=== PATIENT | male | born 1990 | race Caucasian/White ===

== ENCOUNTER 2021-01-12 16:07 | Emergency (ER) | payer SELFPAY ==
[2021-01-12] MEDS ORDERED: Lidocaine 1% 10 ML MDV INJECT ONE (16:31)
--- NOTE | 2021-01-12 16:35 | EDM.PDOC ---
ED HPI GENERAL MEDICAL PROBLEM - General Chief Complaint: Upper Extremity Injury/Pain Stated Complaint: FINGER INJURY Time Seen by Provider: 01/12/21 16:15 Source of Information: Reports: Patient, RN Notes Reviewed History Limitations: Reports: No Limitations - History of Present Illness INITIAL COMMENTS - FREE TEXT/NARRATIVE: Patient is a 30-year-old male who presents to the ER for the evaluation of a finger injury. Patient was at work at around 3 PM today, when he got his left index finger smashed at work. He went to the [facility], and they were able to clean the wound and wrap it but they did not have access to x-rays or did not definitively close the wound. He has full range of motion in his finger, and is denying any numbness or tingling distal to the injury. He has lacerated the nailbed, and has what appears to be an avulsion type injury to the proximal nail bed. There is a laceration that runs up the radial side of his finger, to the distal tip of his left index finger. Patient denies any other sick-like symptoms, fever/chills, cough/shortness of breath, nausea/vomiting/diarrhea. Patient is up-to-date on his tetanus booster. - Related Data Allergies Allergy/AdvReac Type Severity Reaction Status Date / Time No Known Allergies Allergy Verified 01/12/21 16:17 Home Meds: Home Meds cephALEXin [Cephalexin] 500 mg PO BID 7 Days #14 capsule 01/12/21 [Rx] Past Medical History - Past Surgical History HEENT Surgical History: Reports: Oral Surgery Social & Family History - Tobacco Use Tobacco Use Status *Q: Never Tobacco User - Recreational Drug Use Recreational Drug Use: No Review of Systems - Review of Systems Review Of Systems: Comprehensive ROS is negative, except as noted in HPI. ED EXAM, GENERAL - Physical Exam Exam: See Below Exam Limited By: No Limitations General Appearance: Alert, WD/WN, No Apparent Distress Respiratory/Chest: No Respiratory Distress, Lungs Clear, Normal Breath Sounds, No Accessory Muscle Use, Chest Non-Tender Cardiovascular: Normal Peripheral Pulses, Regular Rate, Rhythm, No Edema Peripheral Pulses: 2+: Radial (L), Radial (R) Extremities: Normal Range of Motion, Normal Capillary Refill Neurological: Alert, Oriented, Normal Cognition, No Motor/Sensory Deficits Psychiatric: Normal Affect, Normal Mood Skin Exam: Warm, Dry, Normal Color, No Rash, Wound/Incision (Roughly 3 cm lacer ation to the distal left posterior fingertip, the nailbed is lacerated, the laceration extends up the radial side of the patient's index finger, with it terminating at the very distal tip of the finger) ED TRAUMA EXTREMITY PROCEDURES - Laceration/Wound Repair Left Distal Digit - 2nd (Index) Lac/Wound Length In cm: 3 Appearance: Superficial, Irregular Distal NVT: Neuro & Vascular Intact, No Tendon Injury Anesthetic Type: Digital Local Anesthesia - Lidocaine (Xylocaine): 1% Plain Local Anesthetic Volume: 4cc Skin Prep: Chlorhexidine (Hibiciens), Saline Exploration/Debridement/Repair: Wound Explored, In a Bloodless Field, Explored to Base, No Foreign Material Found Closed With: Sutures Suture Size: 4-0 # of Sutures: 6 Suture Type: Prolene, Interrupted, Simple Sterile Dressing Applied: Nurse Tetanus Status Addressed: Yes Complications: No - Splinting Left 2nd Digit Splint Site: L index finger Pre-Procedure NV Status: Normal Post-Procedure NV Status: Normal Splint Material: Aluminum-Foam (cage type spling) Applied & Form Fitted By: Nurse Provider Post-Splint Application NV Check: NV Status Normal, Good Position Course - Vital Signs Last Recorded V/S: Last Vital Signs Temp 97.6 F 01/12/21 16:13 Pulse 86 01/12/21 16:13 Resp 20 01/12/21 16:13 BP 135/91 H 01/12/21 16:13 Pulse Ox 98 01/12/21 16:13 - Orders/Labs/Meds Meds: Medications Discontinued Medications Generic Name Dose Route Start Last Admin Trade Name Gregg PRN Reason Stop Dose Admin Lidocaine HCl 10 ml 01/12/21 16:31 Lidocaine 1% 10 Ml Mdv INJECT 01/12/21 16:32 ONETIME ONE - Re-Assessments/Exams Free Text/Narrative Re-Assessment/Exam: 01/12/21 16:34 Patient presents to the ER for evaluation of a finger injury, we will go ahead and get x-ray of the area for further evaluation. Patient has violated the nailbed, he will lose the nail 1 where the other. He would like sutures to be placed to try to anchor the nail back down. It should come back together nice once the swelling has decreased a little bit. 01/12/21 17:34 The patient's x-ray does demonstrate a distal tuft fracture of the left index finger. Once the finger has been sutured we will go ahead and place him in a aluminum/foam cage type splint to protect the fingertip. He will be placed on oral Keflex for ongoing management. Departure - Departure Time of Disposition: 17:35 Disposition: Home, Self-Care 01 Condition: Good Clinical Impression: Open fracture of finger of left hand Qualifiers: Encounter type: initial encounter Finger: index finger Phalanx: distal Fracture alignment: nondisplaced Qualified Code(s): S62.661B - Nondisplaced fracture of distal phalanx of left index finger, initial encounter for open fracture - Discharge Information *PRESCRIPTION DRUG MONITORING PROGRAM REVIEWED*: No *COPY OF PRESCRIPTION DRUG MONITORING REPORT IN PATIENT JULIANNA: No Prescriptions: cephALEXin [Cephalexin] 500 mg PO BID 7 Days #14 capsule Instructions: Finger Fracture, Adult, [id number] Referrals: PCP,None [Primary Care Provider] - Forms: ED Department Discharge Additional Instructions: You have been evaluated in the ED for your finger injury. Sutures will need to stay in for 10 to 14 days. You may return to the ED or any clinic for removal. An aluminum foam type splint was placed over the wound area to help protect this while it is healing. Your finger x-ray did demonstrate a tuft fracture of your distal index finger. You will need to be placed on antibiotics for this. It will be cephalexin 1 tablet two times a day for the next 7 days. This medication was electronically sent to the [place] [facility] located in the [facility] [place] [employer]. Please keep this area clean and dry, you may cleanse with regular soap and water. No vigorous scrubbing. Please try to avoid submerging the affected area in water for prolonged periods of time until the sutures are removed. Watch out for signs of infection like increased redness, swelling, pain at the laceration site, or if you should develop any fevers or chills. Please return to ED if your symptoms change or worsen. Sepsis Event Note (ED) - Focused Exam Vital Signs: Vital Signs Temp Pulse Resp BP Pulse Ox 01/12/21 16:13 97.6 F 86 20 135/91 H 98
--- NOTE | 2021-01-12 18:01 | CR ---
Left second finger: Four views of the second finger were obtained. Comparison: No prior finger or hand study is available. Slightly comminuted fracture with mild displacement is seen within the distal tuft of the left second finger. Soft tissue injury is noted. No additional bony abnormality is appreciated. Impression: 1. Fracture with soft tissue swelling as noted above. Diagnostic code #3
== END 2021-01-12 18:26 | disposition home or self-care (01) ==
LOC: JD.ED 16:07
DX: S62.661B Nondisplaced fracture of distal phalanx of left index finger, initial encounter for open fracture (principal); W23.0XXA Caught, crushed, jammed, or pinched between moving objects, initial encounter; Y99.0 Civilian activity done for income or pay
CPT/HCPCS: 11760; 12002; 73140-26-F1; 73140-F1; 99283-25

== ENCOUNTER 2023-05-03 05:00 | Emergency (ER) | payer OTHER ==
[2023-05-03] MEDS ORDERED: Ketorolac 15 MG/ML SDV IVPUSH ONE (05:42)
[2023-05-03] MEDS ORDERED: Ondansetron 4 MG Tab.DIS PO ONE (05:42)
[2023-05-03] MEDS ORDERED: Sodium Chloride 0.9% 1,000 ML IV ONE (05:45)
[2023-05-03 06:39] LABS: BASOPHILS PERCENT AUTO 0.3 % (0.0-1.0); EOSINOPHILS PERCENT AUTO 0.1 % (0.0-6.0); HEMATOCRIT 47.5 % (42.0-52.0); IMMATURE GRAN ABSOLUTE AUTO 0.05 K/mm3 (0.00-0.05); IMMATURE GRAN PERCENT AUTO 0.4 % (0.0-0.4); LYMPHOCYTES PERCENT AUTO 8.1 % (24.0-44.0); MEAN CORPUSCULAR HEMOGLOBIN 26.5 pg (28.0-32.0); MEAN CORPUSCULAR HGB CONC 31.6 g/dl (32.0-36.0); MEAN CORPUSCULAR VOLUME 83.8 fl (83.0-99.0); MEAN PLATELET VOLUME 11.7 fl (9.4-12.4); MONOCYTES ABSOLUTE AUTO 0.8 K/mm3 (0.0-0.8); MONOCYTES PERCENT AUTO 6.2 % (0.0-8.0); NEUTROPHILS ABSOLUTE AUTO 10.5 K/mm3 (1.8-7.7); NEUTROPHILS PERCENT AUTO 84.9 % (41.0-71.0); PLATELET COUNT,PLT 201 K/mm3 (150-400); RED BLOOD CELL COUNT 5.67 M/mm3 (4.52-5.90); WHITE BLOOD CELL COUNT,WBC 12.34 K/mm3 (3.9-11.3)
[2023-05-03 06:52] LABS: ALBUMIN 3.8 g/dl (3.4-5.0); ANION GAP 14.9 (5-15); BILIRUBIN TOTAL 1.1 mg/dL (0.2-1.0); BUN/CREATININE RATIO 13.1 (14-18); CALCIUM 9.4 mg/dL (8.5-10.1); CREATININE 1.3 mg/dL (0.7-1.3); EST CRCL DRUG DOSING (CG) 81.58 mL/min; POTASSIUM,K 3.9 mEq/L (3.5-5.1); PROTEIN TOTAL,TP 7.7 g/dl (6.4-8.2)
[2023-05-03 07:09] LABS: APPEARANCE,URINE CLEAR (Clear); BILIRUBIN,URINE NEGATIVE (Negative); COLOR,URINE DARK YELLOW (Yellow); GLUCOSE,URINE NEGATIVE (Negative); KETONES,URINE TRACE (Negative); LEUKOCYTE ESTERASE,URINE NEGATIVE (Negative); NITRITE,URINE NEGATIVE (Negative); OCCULT BLOOD,URINE TRACE-LYSED (Negative); PROTEIN,URINE NEGATIVE (Negative); UROBILINOGEN,URINE 0.2 (0.2-1.0)
[2023-05-03 07:28] LABS: BACTERIA,URINE FEW /hpf (FEW); CALCIUM OXALATE CRYSTALS,URINE FEW; EPITHELIAL CELLS,URINE 0-5 /hpf (0-5); MUCUS,URINE MANY /hpf (FEW); WBC,URINE 0-5 /hpf (0-5)
== END 2023-05-03 09:59 | disposition home or self-care (01) ==
LOC: JD.ED 05:00
DX: N21.0 Calculus in bladder (principal); Z86.16 Personal history of COVID-19
CPT/HCPCS: 36415; 74176; 80053; 81001; 85025; 87086; 96361; 96374; 99284; A9270; J1885; J7030